=== PATIENT | female | born 1950 | race Caucasian/White ===

== ENCOUNTER → 2023-01-08 13:55 | Outpatient (CLI) | payer MEDICARE, SELFPAY ==
--- NOTE | 2023-01-08 14:02 | XR_ITS ---
FINAL REPORT CLINICAL HISTORY: Foot Pain left foot pain FINDINGS: Left foot Three views were obtained. There is no acute fracture or dislocation. There is a moderate plantar spur. There are mild hypertrophic changes of the 1st metatarsophalangeal joint. No soft tissue abnormality is identified. IMPRESSION: Degenerative changes as detailed above. Reviewed, Interpreted and Dictated by Ramon Membreno MD Transcribed by Bobbi Lee Authenticated and [facility]
--- NOTE | 2023-01-08 14:02 | XR_ITS ---
FINAL REPORT CLINICAL HISTORY: Foot Pain right FINDINGS: Right foot Three views were obtained. There is no acute fracture or dislocation. The joint spaces appear normal. No soft tissue abnormality is identified. There is a small plantar spur. IMPRESSION: No acute process. Reviewed, Interpreted and Dictated by Ramon Membreno MD Transcribed by Bobbi Lee Authenticated and [facility]
== END ==
PROVIDERS: PCP Family Medicine; Visit Provider Nurse Practitioner Family
DX: M79.671 Pain in right foot (principal); M79.672 Pain in left foot
CPT/HCPCS: 73630